=== PATIENT | male | born 1940 | race Caucasian/White ===

== ENCOUNTER 2016-10-02 22:38 | Emergency (ER) | payer MEDICARE ==
[2016-10-02 22:46] VITALS: RESP 18
[2016-10-02] MEDS ORDERED: SODIUM CHLORIDE 0.9% 500 ML IV STA (23:01)
[2016-10-02 23:11] LABS: Basophils % (A) 0 %; CH 32.9; CHCM 31.6; Eosinophils # (A) 0.1 k/uL (0-0.7); Eosinophils % (A) 1 %; HDW 2.35; HGB 12.9 gm/dL (13.0-17.5); Luc # (Auto) 0.11; Luc % (Auto) 1; Lymphocytes # (A) 0.5 k/uL (1.0-4.8); Lymphocytes % (A) 6 %; MCH 32.8 pg (25.0-35.0); MCHC 31.4 g/dL (31.0-37.0); MCV 104.5 fL (80.0-100.0); Macrocytosis Moderate; Mean Platelet Volume 7.5; Monocytes # (A) 0.5 k/uL (0-1.0); Monocytes % (A) 5 %; Neutrophils # (A) 8.2 k/uL (1.3-7.7); Neutrophils % (A) 86 %; RBC 3.92 m/uL (4.30-5.90); RDW 14.6 % (11.5-15.5); WBC 9.5 k/uL (3.8-10.6); WBC (Perox) 10.27
--- NOTE | 2016-10-02 23:16 | ED ---
SOB HPI - General Chief Complaint: Shortness of Breath Stated Complaint: Diff breathing Time Seen by Provider: 10/02/16 22:49 Source: patient, family (Son) Mode of arrival: wheelchair Limitations: altered mental status (History of underlying dementia) - History of Present Illness Initial Comments: This patient is a 76-year-old man brought in by his son because the patient has not been acting like his normal self. The patient has some underlying dementia and is not able to provide much history. Per the patient's son the patient's seem to be coughing a little bit more than his usual, and he may have been more short of breath around the house. In addition his appetite was decreased tonight and the patient's son was concerned because she had given the afternoon dose of insulin and then the patient did not want to have anything to eat. The patient is requesting food and coffee here. Patient is denying chest pain, back or abdominal pain, dyspnea. He states that he has been coughing for the past 2-3 years since his lobectomy. MD Complaint: shortness of breath, cough Onset/Timin -: days(s) Associated Symptoms: cough - Related Data Home Medications Medication Instructions Recorded Confirmed Aspirin EC [Ecotrin Low Dose] 81 mg PO DAILY 10/02/16 10/02/16 Atorvastatin [Lipitor] 20 mg PO 10/02/16 10/02/16 Fluticasone Nasal [place] [Flonase 1 spray EA NOSTRIL DAILY PRN 10/02/16 10/02/16 Nasal [place]] Furosemide [Lasix] 40 mg PO DAILY 10/02/16 10/02/16 Insulin Aspart [NovoLOG Flexpen] See Protocol SQ AC-BID 10/02/16 10/02/16 Insulin Glargine [Lantus] 20 unit SQ HS 10/02/16 10/02/16 Nebivolol [Bystolic] 5 mg PO DAILY 10/02/16 10/02/16 Omeprazole 20 mg PO DAILY 10/02/16 10/02/16 Tamsulosin HCl [Flomax] 0.4 mg PO 10/02/16 10/02/16 Tetrahydrozoline 0.05% Ophth 1 drop BOTH EYES QID PRN 10/02/16 10/02/16 [Visine Eye Drops] Tiotropium Whitman [Spiriva 2 puff INHALATION RT-DAILY 10/02/16 10/02/16 Respimat] Previous Rx's Medication Instructions Recorded Azithromycin [Zithromax Z-pack] 250 mg PO DIRECTED #6 tab 10/03/16 Allergies Allergy/AdvReac Type Severity Reaction Status Date / Time No Known Allergies Allergy Verified 10/02/16 22:46 Review of Systems ROS Statement: Those systems with pertinent positive or pertinent negative responses have been documented in the HPI. ROS Other: All systems not noted in ROS Statement are negative. Limitations: ROS unobtainable due to patients medical condition Respiratory: Reports: cough Cardiovascular: Denies: chest pain Gastrointestinal: Denies: abdominal pain, vomiting Genitourinary: Denies: dysuria Musculoskeletal: Denies: back pain Neurological: Denies: headache Past Medical History Past Medical History: Diabetes Mellitus, Hypertension, Myocardial Infarction ([place] ) History of Any Multi-Drug Resistant Organisms: None Reported Past Surgical History: Coronary Bypass/CABG, Heart Catheterization With Stent, Tonsillectomy Additional Past Surgical History / Comment(s): lobectomy right lung Past Psychological History: No Psychological Hx Reported Smoking Status: Former smoker Past Alcohol Use History: None Reported Past Drug Use History: None Reported General Exam Limitations: no limitations General appearance: alert, in no apparent distress Head exam: Present: atraumatic, normocephalic ENT exam: Present: mucous membranes dry Neck exam: Present: normal inspection Respiratory exam: Present: wheezes, rhonchi, decreased breath sounds. Absent: respiratory distress, rales, stridor, accessory muscle use, prolonged expiratory Cardiovascular Exam: Present: regular rate, irregular rhythm, normal heart sounds. Absent: systolic murmur, diastolic murmur, rubs, gallop GI/Abdominal exam: Present: soft. Absent: distended, tenderness, guarding, rebound, rigid, mass Extremities exam: Present: normal inspection, normal capillary refill. Absent: pedal edema, calf tenderness Back exam: Present: normal inspection. Absent: CVA tenderness (R), CVA tenderness (L) Neurological exam: Present: alert. Absent: oriented X3 (Patient is alert and oriented to person and place but did not of the exact date.), motor sensory deficit Skin exam: Present: warm, dry, intact, normal color. Absent: rash Course Vital Signs 10/02/16 10/03/16 22:40 01:42 Temperature 98.2 F 98.5 F Pulse Rate 89 80 Respiratory 18 18 Rate Blood Pressure 166/83 137/69 O2 Sat by Pulse 92 L 93 L Oximetry Medical Decision Making - Lab Data Result diagrams: 10/02/16 22:55 10/02/16 22:55 Lab Results 10/02/16 10/02/16 10/02/16 Range/Units 22:55 22:55 22:55 WBC 9.5 (3.8-10.6) k/uL RBC 3.92 L (4.30-5.90) m/uL Hgb 12.9 L (13.0-17.5) gm/dL Hct 41.0 (39.0-53.0) % MCV 104.5 H (80.0-100.0) fL MCH 32.8 (25.0-35.0) pg MCHC 31.4 (31.0-37.0) g/dL RDW 14.6 (11.5-15.5) % Plt Count 168 (150-450) k/uL Neutrophils % 86 % Lymphocytes % 6 % Monocytes % 5 % Eosinophils % 1 % Basophils % 0 % Neutrophils # 8.2 H (1.3-7.7) k/uL Lymphocytes # 0.5 L (1.0-4.8) k/uL Monocytes # 0.5 (0-1.0) k/uL Eosinophils # 0.1 (0-0.7) k/uL Basophils # 0.0 (0-0.2) k/uL Macrocytosis Moderate PT 11.4 (9.0-12.0) sec INR 1.1 (<1.1) APTT 25.3 (22.0-30.0) sec D-Dimer 2.77 H (<0.60) mg/L FEU Sodium 135 L (137-145) mmol/L Potassium 3.9 (3.5-5.1) mmol/L Chloride 99 (98-107) mmol/L Carbon Dioxide 28 (22-30) mmol/L Anion Gap 8 mmol/L BUN 17 (9-20) mg/dL Creatinine 0.62 L (0.66-1.25) mg/dL Est GFR (MDRD) Af Amer >60 (>60 ml/min/1.73 sqM) Est GFR (MDRD) Non-Af >60 (>60 ml/min/1.73 sqM) Glucose 59 L (74-99) mg/dL Calcium 8.6 (8.4-10.2) mg/dL Magnesium 1.8 (1.6-2.3) mg/dL Total Bilirubin 1.1 (0.2-1.3) mg/dL AST 32 (17-59) U/L ALT 31 (21-72) U/L Alkaline Phosphatase 306 H (38-126) U/L Troponin I (0.000-0.034) ng/mL NT-Pro-B Natriuret Pep pg/mL Total Protein 7.5 (6.3-8.2) g/dL Albumin 3.4 L (3.5-5.0) g/dL 10/02/16 10/02/16 Range/Units 22:55 22:55 WBC (3.8-10.6) k/uL RBC (4.30-5.90) m/uL Hgb (13.0-17.5) gm/dL Hct (39.0-53.0) % MCV (80.0-100.0) fL MCH (25.0-35.0) pg MCHC (31.0-37.0) g/dL RDW (11.5-15.5) % Plt Count (150-450) k/uL Neutrophils % % Lymphocytes % % Monocytes % % Eosinophils % % Basophils % % Neutrophils # (1.3-7.7) k/uL Lymphocytes # (1.0-4.8) k/uL Monocytes # (0-1.0) k/uL Eosinophils # (0-0.7) k/uL Basophils # (0-0.2) k/uL Macrocytosis PT (9.0-12.0) sec INR (<1.1) APTT (22.0-30.0) sec D-Dimer (<0.60) mg/L FEU Sodium (137-145) mmol/L Potassium (3.5-5.1) mmol/L Chloride (98-107) mmol/L Carbon Dioxide (22-30) mmol/L Anion Gap mmol/L BUN (9-20) mg/dL Creatinine (0.66-1.25) mg/dL Est GFR (MDRD) Af Amer (>60 ml/min/1.73 sqM) Est GFR (MDRD) Non-Af (>60 ml/min/1.73 sqM) Glucose (74-99) mg/dL Calcium (8.4-10.2) mg/dL Magnesium (1.6-2.3) mg/dL Total Bilirubin (0.2-1.3) mg/dL AST (17-59) U/L ALT (21-72) U/L Alkaline Phosphatase (38-126) U/L Troponin I <0.012 (0.000-0.034) ng/mL NT-Pro-B Natriuret Pep 2920 pg/mL Total Protein (6.3-8.2) g/dL Albumin (3.5-5.0) g/dL - EKG Data -: EKG Interpreted by Me EKG shows normal: axis (Right axis deviation), intervals (Normal), QRS complexes (Normal) Rate: normal (The rate is pressed 78 bpm) Interpretation: other (Patient's underlying rhythm is atrial fibrillation.) Disposition Clinical Impression: Pneumonia, CHF exacerbation Disposition: HOME SELF-CARE Condition: Fair Instructions: Pneumonia (ED) Prescriptions: Azithromycin [Zithromax Z-pack] 250 mg PO DIRECTED #6 tab Referrals: Saulo Karimi DO [Primary Care Provider] - 1-2 days
[2016-10-02 23:20] LABS: ALT 31 U/L (21-72); AST 32 U/L (17-59); Alkaline Phosphatase 306 U/L (38-126); Anion Gap 8 mmol/L; Blood Urea Nitrogen 17 mg/dL (9-20); Calcium 8.6 mg/dL (8.4-10.2); Carbon Dioxide 28 mmol/L (22-30); Chloride 99 mmol/L (98-107); Glucose 59 mg/dL (74-99); Magnesium 1.8 mg/dL (1.6-2.3); Non-African American GFR(MDRD) >60 (>60 ml/min/1.73 sqM); Potassium 3.9 mmol/L (3.5-5.1); Sodium 135 mmol/L (137-145); Total Bilirubin 1.1 mg/dL (0.2-1.3); Total Protein 7.5 g/dL (6.3-8.2)
[2016-10-02 23:24] LABS: INR 1.1 (<1.1); Partial Thromboplastin Time 25.3 sec (22.0-30.0); Prothrombin Time 11.4 sec (9.0-12.0)
--- NOTE | 2016-10-02 23:44 | XR ---
EXAM: XR Chest, 1 View CLINICAL HISTORY: Reason: dyspnea. hx of prev. [place], heart cath with stents, Htn TECHNIQUE: Frontal view of the chest. COMPARISON: None FINDINGS: Lungs/pleura: Asymmetrically lower right lung volume with right hemidiaphragm elevation, likely due to prior surgery. Small right pleural effusion versus pleural thickening. Right basilar atelectasis. Heart/mediastinum: Median sternotomy wires. Surgical clips in the right upper mediastinum. Coronary artery stents. Enlarged cardiac silhouette with mediastinal shift toward the right. Soft tissues: Unremarkable. Bones: No acute fracture. Degenerative changes of the acromioclavicular joints. IMPRESSION: Postsurgical changes of the right lung with right basilar atelectasis versus scarring and small right pleural effusion versus thickening.
[2016-10-03] MEDS ORDERED: RX INFO: IV CONTRAST WAS GIVEN 1 EACH MISC MISCELLANE PRN (00:29)
--- NOTE | 2016-10-03 01:15 | CT ---
EXAM: CT Angiography Chest With Intravenous Contrast CLINICAL HISTORY: Reason: Pain TECHNIQUE: Axial computed tomographic angiography images of the chest with intravenous contrast using pulmonary embolism protocol. CTDI is 110.80 mGy and DLP is 302.70 mGy-cm. This CT exam was performed using one or more of the following dose reduction techniques: automated exposure control, adjustment of the mA and/or kV according to patient size, and/or use of iterative reconstruction technique. MIP reconstructed images were created and reviewed. COMPARISON: Chest radiograph on 10/02/2016 FINDINGS: Lung parenchyma: Moderate centrilobular emphysematous changes bilaterally. Consolidation at the right lung base as well as atelectasis and/or scarring. Status post resection of the right upper lobe with resultant volume loss in the right hemithorax. Pleural space: Normal. No pleural effusion or pneumothorax. Mediastinum/nadira: Rightward mediastinal shift due to post surgical changes and volume loss in the right hemithorax. Median sternotomy changes No mass or lymphadenopathy. Heart: Mild cardiomegaly. No pericardial effusion. Coronary artery calcifications and stents.. Vasculature: No definite pulmonary embolus identified, although breathing motion artifact limits evaluation of the most distal pulmonary arterial branches. Aorta: Normal. No aneurysm or dissection. Airways: Patent. Bones: Osteopenia with degenerative changes of the spine. No bony lesion or acute fracture. Muscles: No mass. Subcutaneous tissues: Normal. Upper abdomen: Thickening of the right adrenal gland. Other: Mild reflux of contrast into the hepatic veins suggests elevated right heart pressures. Possible small hiatal hernia. Small amount of fluid in the upper esophagus which predisposes the patient aspiration IMPRESSION: 1. Consolidation at the right lung base may represent pneumonia versus aspiration changes. 2. No definite pulmonary embolus identified, although breathing motion artifact limits evaluation of the most distal pulmonary arterial branches. 3. Moderate centrilobular emphysematous changes bilaterally. Status post resection of the right upper lobe with resultant volume loss in the right hemithorax and rightward mediastinal shift.
[2016-10-03] MEDS ORDERED: AZITHROMYCIN 500 MG TAB PO STA (01:23)
[2016-10-03 01:44] VITALS: BP 137/69; PULSE 80; TEMP 98.5
== END 2016-10-03 02:19 | disposition home or self-care (01) ==
LOC: EC 22:38
DX: J18.9 Pneumonia, unspecified organism (principal); I11.0 Hypertensive heart disease with heart failure; I50.9 Heart failure, unspecified; E11.9 Type 2 diabetes mellitus without complications; I25.2 Old myocardial infarction; Z87.891 Personal history of nicotine dependence; Z79.4 Long term (current) use of insulin; Z79.82 Long term (current) use of aspirin; Z79.899 Other long term (current) drug therapy; Z95.818 Presence of other cardiac implants and grafts; Z95.1 Presence of aortocoronary bypass graft
CPT/HCPCS: 36415; 93005; 85379; 83880; 80053; 83735; 84484; 85025; 85610; 85730; 71010; 71275; 99285; 96365; Q9967; J0696